=== PATIENT | male | born 1995 | race African-American/Black ===

== ENCOUNTER 2020-07-06 13:34 | Emergency (ER) | payer SELFPAY ==
[~2020-07-06] VITALS: Ht 165.1 cm; Wt 56.0 kg
[2020-07-06] MEDS ORDERED: BIKTARVY 50-2001 TAB (14:09)
[2020-07-06 14:20] VITALS: BP 138/63
== END 2020-07-06 14:20 | disposition left against medical advice (07) | DRG 894 ==
LOC: ED 13:34
DX: F10.10 Alcohol abuse, uncomplicated (principal); Z91.19 Patient's noncompliance with other medical treatment and regimen